=== PATIENT | female | born 1975 | race Caucasian/White ===

== ENCOUNTER 2016-11-01 01:08 | Observation (INO) ==
[2016-11-01 01:24] LABS: Basophils # 0.1 K/mcL (0.0-0.2); Basophils % 0.4 %; Eosinophils # 0.2 K/mcL (0.0-0.6); Hematocrit 49.3 % (35.3-44.9); Hemoglobin 16.4 g/dL (11.5-15.4); Immature Granulocytes % 0.7 % (0-4); Lymphocytes # 3.7 K/mcL (0.6-4.6); Lymphocytes % 21.3 %; Mean Corpuscular HGB Conc 33.3 g/dL (31.6-35.5); Mean Corpuscular Hemoglobin 28.9 pg (28.0-33.3); Mean Corpuscular Volume 86.8 fL (83.0-100.0); Mean Platelet Volume 9.7 fL (9.4-12.4); Monocytes # 1.4 K/mcL (0.0-1.3); Platelet Count 209 K/mcL (140-400); Red Blood Count 5.68 M/mcL (3.82-4.97); Red Cell Distribution Width 13.2 % (11.5-14.5); Segmented Neutrophils % 68.6 %
[2016-11-01 01:29] LABS: Prothrombin Time 10.9 Seconds (9.4-12.1)
[2016-11-01] MEDS: 0.9 % Sodium Chloride 1,000 ML IVC SCH ×4 (01:30→22:17)
--- NOTE | 2016-11-01 01:30 | Emergency Department Note ---
Disposition Clinical Impression: TIA (transient ischemic attack) Qualifiers: Transient cerebral ischemia type: unspecified Qualified Code(s): G45.9 - Transient cerebral ischemic attack, unspecified Disposition: Admitted As Inpatient Condition: Good Neuro HPI - General Chief Complaint: ED Neuro Symptoms/Deficit Stated Complaint: stroke alert Time Seen by Provider: 11/01/16 01:16 Source: patient Mode of arrival: EMS Limitations: no limitations Nursing Notes Reviewed: Yes Vital Signs Reviewed: Yes - History of Present Illness HPI Narrative: 41-year-old female history of thrombocytopenia who presents to the ER due to right-sided paresthesias. Patient states that she got home from work around 10: 30. She reports as she was going to sleep she started feeling chest pain, then a headache, then right sided paresthesias. EMS was called by her family at home. She believes this was around midnight. She denies a prior history of CVA. She reports pain in the right side of her neck as well as her right shoulder. She reports weakness in her right upper extremity secondary to this. She also has pain of her right lower extremity and pain with motion. She states that her right upper extremity felt numb but that it is improving and she is now able to feel her hand. She reports a prior history of headaches. Cranial nerves are intact on exam. No dysarthria or slurred speech. Negative Spurling test. She does have pain with palpation along her right neck and shoulder. Stroke alert was not called as the patient's symptoms do not seem to correlate with an acute cerebral infarction. She is having pain that is limiting her range of motion of the right upper and lower extremities. Her symptoms are also improving and she is able to feel her hand now at the time of arrival. Given her sudden onset of symptomatology as well as her prior history of thrombocytopenia we will pursue arterial studies for evaluation for potential dissection. Onset of Symptoms Date: 11/01/16 Onset of Symptoms Time: 00:00 Symptom Onset Unknown: No Timing confirmed by: family member Location: right arm, right leg History of same: No Severity: moderate Quality: numbness Symptoms Improving: Yes Improves with: time Context: sudden onset On Anticoagulants: No Associated symptoms: Reports: chest pain, headaches, nausea/vomiting. Denies: fever/chills, shortness of breath Treatments Prior to Arrival: none - Related Data Home Medications: Home Medications Medication Instructions Recorded Confirmed Omeprazole [PriLOSEC] 20 mg PO DAILY PRN 11/01/16 11/01/16 Allergies/Adverse Reactions: Allergies Allergy/AdvReac Type Severity Reaction Status Date / Time naproxen [From Naprosyn] AdvReac Difficulty Verified 05/10/16 20:07 Breathing All systems ED: reviewed and negative except as stated. Constitutional: Denies: fever Cardiovascular: Reports: chest pain Respiratory: Denies: dyspnea Gastrointestinal: Reports: nausea. Denies: abdominal pain, vomiting, diarrhea Neurological: Reports: headache, weakness, paresthesias Past Medical History - Past Medical History Attestation: Yes The following information was validated with the patient. Source: patient Medical history: Reports: non-contributory, asthma, other (Thrombocytopenia) Surgical history: Reports: non-contributory - Social History Smoking Status: Never smoker Smokeless Tobacco Status: No Alcohol use: Reports: none Drug use: Reports: none Physical Exam - General Limitations: no limitations General appearance: alert, in no apparent distress - Head Head exam: atraumatic, normocephalic, normal inspection - Eye Eye exam: Present: normal appearance, PERRL, EOMI - ENT ENT exam: normal exam - Neck Neck exam: Present: normal inspection, full ROM, tenderness (Patient has tenderness to palpation along the right paraspinal muscles.) - Chest Chest inspection: Present: normal inspection, symmetric chest wall rise - Respiratory Respiratory exam: Present: normal lung sounds bilaterally - Cardiovascular Cardiovascular exam: Present: regular rate, normal rhythm, normal heart sounds - Abdominal Exam Abdominal exam: Present: soft, Non-Tender. Absent: tenderness, distention, rigidity - Extremities Exam Extremities exam: Present: normal inspection - Expanded Upper Extremity Exam Shoulder exam: Present: normal inspection, full ROM, tenderness (Patient has tenderness to palpation to her right shoulder.) Arm exam: Present: normal inspection, full ROM, other (Patient reports paresthesias to the right upper extremity.) Elbow exam: Present: normal inspection, full ROM Forearm/Wrist exam: Present: normal inspection, full ROM Hand exam: Present: normal inspection, full ROM Vascular exam: Normal: capillary refill, radial pulse - Expanded Lower Extremity Exam Hip/Pelvis exam: Present: normal inspection, full ROM Upper leg exam: Present: normal inspection, full ROM, other (Patient reports paresthesias to the right lower extremity of the proximal thigh.) Knee exam: Present: normal inspection, full ROM Lower leg exam: Present: normal inspection, full ROM Ankle exam: Present: normal inspection, full ROM Foot/toe exam: Present: normal inspection, full ROM Neurovascular/Tendon exam: Absent: motor deficit - Neurological Exam Neurological exam: Present: alert, oriented X3, CN II-XII intact - Expanded Neurological Exam Patient oriented to: Present: person, place, time Speech: Present: fluid speech Cranial nerves: EOM function (II, III, IV, ): Normal, facial sensation (V): Normal, spinal accessory function (XI): Normal, tongue deviation (XII): Normal Motor strength - LUE: 5/5 Motor strength - RUE: 5/5 (Reports weakness of her right upper extremities secondary to pain from her neck.) Motor strength - LLE: 5/5 Motor strength - RLE: 5/5 (Reports pain with movement of her right lower extremity.) Sensory exam upper extremity: light touch: Abnormal Right (Right arm) Sensory exam lower extremity: light touch: Abnormal Right (Right thigh) Coma Scale Eye Opening: Spontaneous Coma Scale Motor Response: Obeys Commands Coma Scale Verbal Response: Oriented Coma Scale Total: 15 - Psychiatric Psychiatric exam: Present: normal affect, normal mood - Skin Skin exam: Present: warm, dry, intact, normal color Course Course Narrative: Patient seen and examined the time of arrival. She has subjective weakness of her right upper and lower extremity that she reports is secondary to pain. She had chest pain that then provoked headache and then right-sided paresthesias. Her pain does not correlate with an acute cerebral event. We are concerned for potential dissection given her history of a questionable bleeding disorder and sudden onset right sided paresthesias. We will pursue a CT angiogram of her head, neck, chest, abdomen and pelvis. EKG, chest x-ray and labs including troponin ordered. - Reevaluation(s) Reevaluation #1: Discussed results of imaging and lab work with the patient. Her symptoms have improved since arrival. She is in agreement with staying in the hospital. Vital Signs Temperature 98.3 F 11/01/16 01:09 Pulse Rate 94 11/01/16 01:09 Respiratory Rate 20 11/01/16 01:09 Blood Pressure 140/89 11/01/16 01:09 O2 Sat by Pulse Oximetry 97 11/01/16 01:09 Temperature 98.6 F 11/02/16 11:32 Pulse Rate 68 11/02/16 11:32 Respiratory Rate 16 11/02/16 11:32 Blood Pressure 125/79 11/02/16 11:32 O2 Sat by Pulse Oximetry 97 11/02/16 11:32 Oxygen Delivery Oxygen Delivery Room Air Neuro Symptoms/Deficit - MDM Narrative Medical decision making narrative: 41-year-old female presents to the ER due to right sided weakness. Onset around midnight. Patient had pain associated with her symptoms which is unclear in origin. Symptoms improved during ED stay. There was concern for dissection giving her acute right-sided paresthesias. Dissection studies are negative. NIH's 1. Patient admitted to the hospitalist service for TIA workup. - Lab Data Lab results reviewed: Yes I reviewed the patient's lab results. Result diagrams: 11/02/16 04:40 11/01/16 01:11 Lab Results 11/01/16 11/01/16 11/01/16 Range/Units 01:11 01:11 01:11 WBC 17.5 H (4.3-11.1) K/mcL RBC 5.68 H (3.82-4.97) M/mcL Hgb 16.4 H (11.5-15.4) g/dL Hct 49.3 H (35.3-44.9) % MCV 86.8 (83.0-100.0) fL MCH 28.9 (28.0-33.3) pg MCHC 33.3 (31.6-35.5) g/dL RDW 13.2 (11.5-14.5) % Plt Count 209 (140-400) K/mcL MPV 9.7 (9.4-12.4) fL Immature Gran % 0.7 (0-4) % Seg Neutrophils % 68.6 % Lymphocytes % 21.3 % Monocytes % 8.0 % Eosinophils % 1.0 % Basophils % 0.4 % Neutrophils # 12.0 H (1.6-8.9) K/mcL Lymphocytes # 3.7 (0.6-4.6) K/mcL Monocytes # 1.4 H (0.0-1.3) K/mcL Eosinophils # 0.2 (0.0-0.6) K/mcL Basophils # 0.1 (0.0-0.2) K/mcL PT 10.9 (9.4-12.1) Seconds INR 1.0 APTT 30.1 (26.0-36.0) Seconds Sodium 138 (136-145) mEq/L Potassium 4.1 (3.5-4.5) mEq/L Chloride 106 (98-109) mEq/L Carbon Dioxide 22 (19-29) mEq/L BUN 16 (7-20) mg/dL Creatinine 0.76 (0.57-1.11) mg/dL Est GFR ( Amer) > 60 (> 60) Est GFR (Non-Af Amer) > 60 (> 60) BUN/Creatinine Ratio 21 (6-26) Glucose 119 H (70-99) mg/dL POC Glucose (58-89) Calculated Osmolality 288 (280-300) Calcium 9.1 (8.6-10.8) mg/dL Troponin I (0-0.03) ng/mL Urine Color (Yellow) Urine Clarity (Clear) Urine pH (5.0-8.0) pH Units Ur Specific Roff (1.010-1.025) Urine Protein (Neg-Trace) mg/dL Urine Glucose (UA) (Normal) mg/dL Urine Ketones (Negative) mg/dL Urine Blood (Negative) Urine Nitrite (Negative) Urine Bilirubin (Negative) Urine Urobilinogen (Normal) mg/dL Ur Leukocyte Esterase (Negative) Ur Culture Indicated? (NO) Urine Test (Negative) 11/01/16 11/01/16 11/01/16 Range/Units 01:11 01:12 04:05 WBC (4.3-11.1) K/mcL RBC (3.82-4.97) M/mcL Hgb (11.5-15.4) g/dL Hct (35.3-44.9) % MCV (83.0-100.0) fL MCH (28.0-33.3) pg MCHC (31.6-35.5) g/dL RDW (11.5-14.5) % Plt Count (140-400) K/mcL MPV (9.4-12.4) fL Immature Gran % (0-4) % Seg Neutrophils % % Lymphocytes % % Monocytes % % Eosinophils % % Basophils % % Neutrophils # (1.6-8.9) K/mcL Lymphocytes # (0.6-4.6) K/mcL Monocytes # (0.0-1.3) K/mcL Eosinophils # (0.0-0.6) K/mcL Basophils # (0.0-0.2) K/mcL PT (9.4-12.1) Seconds INR APTT (26.0-36.0) Seconds Sodium (136-145) mEq/L Potassium (3.5-4.5) mEq/L Chloride (98-109) mEq/L Carbon Dioxide (19-29) mEq/L BUN (7-20) mg/dL Creatinine (0.57-1.11) mg/dL Est GFR ( Amer) (> 60) Est GFR (Non-Af Amer) (> 60) BUN/Creatinine Ratio (6-26) Glucose (70-99) mg/dL POC Glucose 110 H (58-89) Calculated Osmolality (280-300) Calcium (8.6-10.8) mg/dL Troponin I 0.00 (0-0.03) ng/mL Urine Color Yellow (Yellow) Urine Clarity Clear (Clear) Urine pH 6.0 (5.0-8.0) pH Units Ur Specific Roff 1.030 H (1.010-1.025) Urine Protein Negative (Neg-Trace) mg/dL Urine Glucose (UA) Normal (Normal) mg/dL Urine Ketones Negative (Negative) mg/dL Urine Blood Negative (Negative) Urine Nitrite Negative (Negative) Urine Bilirubin Negative (Negative) Urine Urobilinogen Normal (Normal) mg/dL Ur Leukocyte Esterase Negative (Negative) Ur Culture Indicated? NO (NO) Urine Test (Negative) 11/01/16 Range/Units 04:05 WBC (4.3-11.1) K/mcL RBC (3.82-4.97) M/mcL Hgb (11.5-15.4) g/dL Hct (35.3-44.9) % MCV (83.0-100.0) fL MCH (28.0-33.3) pg MCHC (31.6-35.5) g/dL RDW (11.5-14.5) % Plt Count (140-400) K/mcL MPV (9.4-12.4) fL Immature Gran % (0-4) % Seg Neutrophils % % Lymphocytes % % Monocytes % % Eosinophils % % Basophils % % Neutrophils # (1.6-8.9) K/mcL Lymphocytes # (0.6-4.6) K/mcL Monocytes # (0.0-1.3) K/mcL Eosinophils # (0.0-0.6) K/mcL Basophils # (0.0-0.2) K/mcL PT (9.4-12.1) Seconds INR APTT (26.0-36.0) Seconds Sodium (136-145) mEq/L Potassium (3.5-4.5) mEq/L Chloride (98-109) mEq/L Carbon Dioxide (19-29) mEq/L BUN (7-20) mg/dL Creatinine (0.57-1.11) mg/dL Est GFR ( Amer) (> 60) Est GFR (Non-Af Amer) (> 60) BUN/Creatinine Ratio (6-26) Glucose (70-99) mg/dL POC Glucose (58-89) Calculated Osmolality (280-300) Calcium (8.6-10.8) mg/dL Troponin I (0-0.03) ng/mL Urine Color (Yellow) Urine Clarity (Clear) Urine pH (5.0-8.0) pH Units Ur Specific Roff (1.010-1.025) Urine Protein (Neg-Trace) mg/dL Urine Glucose (UA) (Normal) mg/dL Urine Ketones (Negative) mg/dL Urine Blood (Negative) Urine Nitrite (Negative) Urine Bilirubin (Negative) Urine Urobilinogen (Normal) mg/dL Ur Leukocyte Esterase (Negative) Ur Culture Indicated? (NO) Urine Test Negative (Negative) - Radiology Data Radiology results reviewed: Yes I reviewed the patient's radiology results. Angiography CT 11/01/16 01:20 IMPRESSION: Unremarkable CTA of the head and neck. D/ / Tej Amador / Tej Amador Interpreting Provider: Tej Amador Chest CTA 11/01/16 01:20 IMPRESSION: There is no evidence of aortic dissection or aneurysm. Diffuse fatty infiltration of the liver. 2.0 cm complex lesion is seen within the left ovary. This is indeterminate. Further evaluation with ultrasound is recommended. D/ / Bernie Alcaraz MD / Bernie Alcaraz MD Interpreting Provider: Bernie Alcaraz MD Neck CTA 11/01/16 01:20 IMPRESSION: Unremarkable CTA of the head and neck. D/ / Tej Amador / Tej Amador Interpreting Provider: Tej Amador - EKG Data EKG attestation: Yes I reviewed and interpreted this EKG. EKG results narrative: EKG demonstrates sinus rhythm with a rate of 78 bpm. Normal axis. Normal intervals. T-wave flattening in lead 3. No ST elevations or depressions. No acute ischemic findings. NIH Stroke Scale - Level of Consciousness LOC: Alert - LOC Questions LOC Questions: Answers both correctly - LOC Commands LOC Commands: Performs both correctly - Best Gaze Best Gaze: Normal - Visual Visual: No visual loss - Facial Palsy Facial Palsy: Normal - Motor Arms Motor Arm-Left: No drift for 10 seconds Motor Arm-Right: No drift for 10 seconds - Motor Legs Motor Leg-Left: No drift for 5 seconds Motor Leg-Right: No drift for 5 seconds - Limb Ataxia Limb Ataxia: Absent of affected limb too weak to perform exam - Sensory Sensory: Mild to moderate loss, "not as sharp" - Best Language Best Language: No aphasia - Dysarthria Dysarthria: Normal - Extinction and Inattention Extinction and Inattention: Normal - NIHSS Total Score NIHSS Total Score: 1 S.B.A.R. - S.B.A.R. Situation: Demographics, MOA Background: Presenting Complaint, Relevant PMH, Meds, & Allergies Assessment: Vital Signs, Course and respsone to treatment, Exam Concerns, Patient/Family Expectation, Pertinant Lab Results, Outstanding Labs Recommendation: Barrier(s) to disposition, Recommendation based on pending studies, treatments, or consults S.B.A.R. Report Given to: Dr. Raghavendra BourgeoisADavid Repor Time: 05:55 Attestation Statement - Attestation Attestation: I examined this patient and my medical decision-making was reviewed with the Resident Physician, Dr. Candelaria. I agree with the documented findings, disposition and treatment plan as described except to the extent set forth below. Pt is a 41 yo wf who presents by EMS for c/o R sided weakness/numbness which began at [place]. Pt arrived with c/o acute severe pain to R side of neck and shoulder, limiting her ROM in RUE and pain throughout R groin and RLE. Pt c/o numbness to RUE/RLE. Pt's speech clear, and no other focal deficits appreciated. Pt states sxs began with diffuse CP, then R neck pain with RUE/RLE weakness/numbness. Pt reports on arrival that "I can feel my R arm and hand now ", with sxs improving on arrival. Pt with hx thrombocytopenia. We did not call a stroke alert, secondary to pt's sxs and more concerned on arrival for possible dissection. Pt hemodynamically stable on arrival. Pt EKG with no ischemic changes. Pt had labs, and CTA head/neck/chest/a&P. Pt with unremarkable imaging. No CVA/bleed/dissection. Will admit for further eval/mgmt for possible tIA. On re-evaluation upon return from CT, pt asymptomatic, with exception of mild RUIZ. Full ROM to RUE/RLE and resolution of numbness.
[2016-11-01 01:31] LABS: Activated Partial Thrombo Time 30.1 Seconds (26.0-36.0)
[2016-11-01 01:37] LABS: BUN/Creatinine Ratio 21 (6-26); Blood Urea Nitrogen 16 mg/dL (7-20); Calcium 9.1 mg/dL (8.6-10.8); Carbon Dioxide 22 mEq/L (19-29); Chloride 106 mEq/L (98-109); Glucose 119 mg/dL (70-99); Osmolality,Calculated 288 (280-300); Potassium 4.1 mEq/L (3.5-4.5); Sodium 138 mEq/L (136-145); eGFR For African Americans > 60 (> 60); eGFR For Non-African Americans > 60 (> 60)
[2016-11-01] MEDS ORDERED: Aspirin 81 MG TAB.CHEW PO ONE (03:20)
[2016-11-01 04:13] LABS: Bilirubin,Urine Negative (Negative); Blood,Urine Negative (Negative); Clarity,Urine Clear (Clear); Color,Urine Yellow (Yellow); Glucose,Urine (UA) Normal (Normal); Ketones,Urine Negative (Negative); Leukocyte Esterase,Urine Negative (Negative); Nitrite,Urine Negative (Negative); Protein,Urine Negative (Neg-Trace); Urobilinogen,Urine Normal (Normal)
[2016-11-01] MEDS ORDERED: Ondansetron 4 MG/2 ML VIAL IVP PRN (09:22)
[2016-11-01] MEDS ORDERED: *HR* HYDROcodone/Acet 5/325 mg TABLET PO PRN (09:22)
[2016-11-01] MEDS ORDERED: Naloxone 0.4 MG/ML INJ IVP PRN (09:22)
[2016-11-01] MEDS ORDERED: Acetaminophen 325 MG TABLET PO PRN (09:22)
--- NOTE | 2016-11-01 10:41 | Internal Med History&Physical ---
Date of Encounter: 11/01/16 Time of Encounter: 10:41 Internal Medicine - H&P: HPI History of present illness: Ms. Root is a 41 year old female Past Med Surg Social Fam HX - Past Medical History Medical history: asthma - Past Surgical History Surgical History: non-contributory - Social History Smoking Status: Current some day smoker Smokeless Tobacco Status: No Alcohol use: none Drug use: none Internal Medicine - H&P: Meds Omeprazole [PriLOSEC] 20 mg PO DAILY PRN 11/01/16 [History] 3 Allergy/AdvReac Type Severity Reaction Status Date / Time naproxen [From Naprosyn] AdvReac Difficulty Verified 05/10/16 20:07 Breathing All Systems PM: A 10-system review of systems was performed and is negative for pertinent findings except as documented above in the HPI. - Constitutional Vitals: Temp Pulse Resp BP Pulse Ox 98.3 F 68 18 109/65 95 11/01/16 06:31 11/01/16 10:00 11/01/16 10:00 11/01/16 10:00 11/01/16 06:31 Internal Med - H&P Results - Labs CBC & Chem 7: 11/01/16 01:11 11/01/16 01:11
--- NOTE | 2016-11-01 14:27 | Internal Med History&Physical ---
Date of Encounter: 11/01/16 Time of Encounter: 14:27 Assessment and Plan (1) Syncope Current visit: Yes Status: Acute Order cardiac enzymes check echocardiogram. Her CTA of head and neck and chest were quite unremarkable. Neurology to see the patient. Qualifiers: Syncope type: unspecified Qualified Code(s): R55 - Syncope and collapse (2) Chest pain Current visit: Yes Status: Acute Atypical chest pain. Aspirin is started. Echo pending. Serial cardiac enzymes recycled. Qualifiers: Chest pain type: unspecified Qualified Code(s): R07.9 - Chest pain, unspecified (3) Right arm weakness Current visit: Yes Status: Acute Patient developed an episode in which she had headache neck pain and right upper and lower extremity weakness with paresthesia but it seems like the symptoms have already resolved now as well as her headache. Differential diagnoses include complicated migraine versus CVA versus cervical spondylosis. As she already had detailed CT angiogram of the head and neck I will add MRI of the cervical spine to rule out any radiculopathy versus a spondylosis as well as an echocardiogram. Discussed with neurology who will see the patient. (4) Asthma Current visit: Yes Status: Acute Inhalers when necessary Qualifiers: Asthma severity: mild intermittent Asthma complication type: uncomplicated Qualified Code(s): J45.20 - Mild intermittent asthma, uncomplicated (5) Idiopathic thrombocytopenia Current visit: Yes Status: Acute Patient has seen hematology as an outpatient and had a biopsy earlier she is following with them (6) Hypertension Current visit: Yes Status: Acute Resume home medication and daily monitoring Qualifiers: Hypertension type: essential hypertension Qualified Code(s): I10 - Essential (primary) hypertension (7) DVT prophylaxis Current visit: Yes Status: Acute [facility] Internal Medicine - H&P: HPI Chief complaint: Headache neck pain and right-sided weakness and paresthesias, chest pain Admitted From: Home Plans for Post Hospital Care: Home History of present illness: Ms. Root is a 41 year old female who has past medical history significant for hypertension and asthma. Yesterday as she returned from her work she developed headache neck pain and later right upper and lower extremity weakness and numbness. Interestingly all the symptoms by this time has resolved. She had terrible right-sided chest pain more in the upper chest area which was not pleuritic in nature. She does not have any history of CVA or [place]. According to boyfriend while she was at suffering through the symptoms for couple of minutes she become unresponsive. Does not remember much. She was not noted to have lost control of bowel or bladder or bit her tongue either. No prior history of seizure. No other complaints. Past Med Surg Social Fam HX - Past Medical History Medical history: asthma - Past Surgical History Surgical History: non-contributory - Social History Smoking Status: Current some day smoker Smokeless Tobacco Status: No Alcohol use: none Drug use: none Internal Medicine - H&P: Meds Omeprazole [PriLOSEC] 20 mg PO DAILY PRN 11/01/16 [History] 3 Allergy/AdvReac Type Severity Reaction Status Date / Time naproxen [From Naprosyn] AdvReac Difficulty Verified 05/10/16 20:07 Breathing All Systems PM: A 10-system review of systems was performed and is negative for pertinent findings except as documented above in the HPI. - Constitutional Constitutional: no chills, no fever(s), no night sweats - EENT Eyes: no change in vision, no discharge, no pain, no photophobia Ears: no ear discharge, no ear pain, no tinnitus Nose, mouth and throat: no dysphagia, no nasal discharge, no neck pain, no sore throat - Cardiovascular Cardiovascular ROS IM: no chest pain, no diaphoresis, no dyspnea, no lightheadedness, no palpitations, no syncope - Respiratory Respiratory: no cough, no dyspnea, no wheezing, no excessive phlegm production - Gastrointestinal Gastrointestinal: no abdominal pain, no diarrhea, no hematemesis, no hematochezia, no melena, no nausea, no vomiting - Genitourinary Genitourinary: no change in urinary stream, no dysuria, no flank pain, no hematuria - Musculoskeletal Musculoskeletal ROS IM: no numbness, no tingling - Integumentary Integumentary IM: no rash, no unusual bruising - Neurological Neurological ROS: no confusion, no convulsions, no focal weakness, no numbness, no tingling, no tremor(s) - Hematologic/Lymphatic Hematologic/Lymphatic: no easy bruising - Constitutional Vitals: Temp Pulse Resp BP Pulse Ox 98.3 F 68 18 109/65 97 11/01/16 09:22 11/01/16 10:00 11/01/16 10:00 11/01/16 10:00 11/01/16 11:05 General appearance: Present: A&O X 3, pleasant, no acute distress, obese - Head Head exam: Present: atraumatic, normocephalic - Eye Eye exam: Present: PERRL, conjuntiva pink, sclera anicteric Pupils: Present: PERRL - Neck Neck exam general surgery: Present: supple, trachea midline. Absent: lymphadenopathy - Respiratory Respiratory exam: Present: CTAB. Absent: accessory muscle use, rales, rhonchi, wheezes - Cardiovascular Cardiovascular exam: Present: RRR, +S1, +S2. Absent: diastolic murmur, gallop, rubs, systolic murmur - GI/Abdominal GI/Abdominal exam: Present: normal bowel sounds, soft, no peritoneal signs. Absent: distended, tenderness - Extremities Exam Extremities exam: Present: warm, radial pulses palpable and symmetrical. Absent : calf tenderness, cyanotic, pedal edema - Neurological Exam Neurological exam: Present: CN II-XII intact, oriented X3, no focal deficits. Absent: pronater drift, facial droop, speech deficit - Skin Skin exam: Present: dry, intact Internal Med - H&P Results - Labs CBC & Chem 7: 11/01/16 01:11 11/01/16 01:11 Labs: Cardiac Enzymes 11/01/16 Range/Units 09:49 Troponin I 0.01 (0-0.03) ng/mL
[2016-11-01] MEDS: Aspirin 325 MG TABLET PO SCH (14:39)
--- NOTE | 2016-11-01 15:15 | Neurology - Consult Note ---
Date of Encounter: 11/01/16 Time of Encounter: 15:11 Assessment and Plan (1) Intractable complicated migraine Current Visit: Yes Status: Acute The patient's symptoms were likely related to a complicated migraine attack with stroke like symptoms. At the moment SYMPTOMS ARE RESOLVED NOW SHE DID NOT HAVE ANY FOCAL NEUROLOGICAL DEFICIT ANGIOGRAM OF THE HEAD AND NECK IS BEEN REPORTED NEGATIVE SHE IS SCHEDULED FOR AN MRI OF THE BRAIN she has been getting some frequent headaches she may benefit from preventative therapy but she did not like to take any medication on a regular basis perhaps we can start her on low-dose of muscle relaxant like tizanidine to take it at bedtime at the same time she may take some NSAID on as-needed basis No PICA is also in the differential but The moment the description sounds more of complicated migraine than the 3 times a day especially given the significant headaches associated with the symptoms MRI of the brain is negative he could be discharged to home follow-up with neurology History of Present Illness HPI: Ms. Root is a 41 year old female with hypertension and asthma. admited with right arm weakness and chest pain along with severe headache according to patient she returned from her work developed headache neck pain and later right upper and lower extremity weakness and numbness. She had terrible right-sided chest pain more in the upper chest area along with sever headache mostly on right side of her head, throbbing in nature she vomite According to boyfriend she has some disorientation as well, Does not remember much. She was not noted to have lost control of bowel or bladder or bit her tongue either. No prior history of seizure. No other complaints.byt he time she came to er all symptoms are resolved CTA of neck head and Chest all negative Past Med Surg Social Fam HX - Past Medical History Medical history: asthma - Past Surgical History Surgical History: non-contributory - Social History Smoking Status: Current some day smoker Smokeless Tobacco Status: No Alcohol use: none Drug use: none Medications and Allergies Omeprazole [PriLOSEC] 20 mg PO DAILY PRN 11/01/16 [History] 3 Allergy/AdvReac Type Severity Reaction Status Date / Time naproxen [From Naprosyn] AdvReac Difficulty Verified 05/10/16 20:07 Breathing All Systems: A 10-system review of systems was performed and is negative for pertinent findings except as documented above in the HPI. getting frequent headaches on daily basis Physical Examination - Vital Signs Vital Signs: Initial Vital Signs Temp Pulse Resp BP Pulse Ox 98.3 F 94 20 140/89 97 11/01/16 01:09 11/01/16 01:09 11/01/16 01:09 11/01/16 01:09 11/01/16 01:09 - Constitutional General appearance: comfortable - Neurologic Detailed motor examination: full strength in all major muscle groups Motor examination - right side: 07/08: deltoids, biceps, triceps, wrist flexion, wrist extension, cyber engineer, hip flexors, tibialis Anterior, quadriceps, toe extension (EHL), plantarflexion Motor examination - left side: 07/08: deltoids, biceps, triceps, wrist flexion, wrist extension, hip flexors, cyber engineer, quadriceps, tibialis Anterior, toe extension (EHL), plantarflexion Mental Status Examination: awake, alert, oriented to person, oriented to place, oriented to time, follows commands appropriately, answers questions appropriately, no agnosia, no aphasia, no aproxia Cranial nerve examination: PERRL, EOMI, visual hammond intact, corneal reflexes brisk symmetrically, sensory to face intact, mastication intact, no facial asymmetry is present, no dysarthria, hearing is intact symmetrically, soft palate elevates bilaterally upon phonation, gag reflex intact, flexes SCM and trapezius muscles symmetrically with full power, tongue protrudes midline, no atrophy or facial fasiculations present Cerebellar examination: no dysmetria, performs finger to nose and heel to mcgee symmetrically without ataxia, no gait ataxia, no truncal ataxia, no difficulty with rapid alternating movements Results - Laboratory Findings CBC and BMP: 11/01/16 01:11 11/01/16 01:11 Abnormal lab findings: Abnormal lab results WBC 17.5 K/mcL (4.3-11.1) H 11/01/16 01:11 RBC 5.68 M/mcL (3.82-4.97) H 11/01/16 01:11 Hgb 16.4 g/dL (11.5-15.4) H 11/01/16 01:11 Hct 49.3 % (35.3-44.9) H 11/01/16 01:11 Neutrophils # 12.0 K/mcL (1.6-8.9) H 11/01/16 01:11 Monocytes # 1.4 K/mcL (0.0-1.3) H 11/01/16 01:11 Glucose 119 mg/dL (70-99) H 11/01/16 01:11 Ur Specific [place] 1.030 (1.010-1.025) H 11/01/16 04:05 Consult Discharge Plan - Plan Referrals: Eddie Belle MD [Primary Care Provider] -
[2016-11-01] MEDS: Ipratropium/Albuterol Neb 3 ML IH SCH ×2 (16:31→23:08)
--- NOTE | 2016-11-01 17:08 | Electrocardiograph Report ---
[address] [address] Test Date: 2016-11-01 Pat Name: Yolanda Root Department: 104 Room: [facility] Gender: F Natural Resource Specialist: : [id number] Requested By: Reji Candelaria Order Number: [id number] Reading MD: Kimberley Jeffrey Measurements Intervals [place] Rate: 78 P: 58 OK: 155 QRS: 74 QRSD: 97 T: 30 QT: 298 QTc: 331 Interpretive Statements SINUS RHYTHM NONSPECIFIC T-WAVE ABNORMALITY Electronically Signed On 11-01-2016 17:07:04 EDT by Kimberley Jeffrey
[2016-11-02] MEDS: Ipratropium/Albuterol Neb 3 ML IH SCH ×2 (04:15→11:08)
[2016-11-02 05:00] LABS: Basophils # 0.1 K/mcL (0.0-0.2); Basophils % 0.5 %; Eosinophils # 0.2 K/mcL (0.0-0.6); Eosinophils % 1.3 %; Hematocrit 43.8 % (35.3-44.9); Hemoglobin 14.4 g/dL (11.5-15.4); Immature Granulocytes % 0.6 % (0-4); Lymphocytes # 2.7 K/mcL (0.6-4.6); Lymphocytes % 21.3 %; Mean Corpuscular HGB Conc 32.9 g/dL (31.6-35.5); Mean Corpuscular Volume 88.3 fL (83.0-100.0); Mean Platelet Volume 9.6 fL (9.4-12.4); Monocytes # 0.8 K/mcL (0.0-1.3); Monocytes % 6.7 %; Neutrophils # 8.7 K/mcL (1.6-8.9); Platelet Count 167 K/mcL (140-400); Red Blood Count 4.96 M/mcL (3.82-4.97); Red Cell Distribution Width 13.2 % (11.5-14.5); Segmented Neutrophils % 69.6 %
[2016-11-02 05:13] LABS: Chol/HDL Ratio 9.8 (0-4.9)
[2016-11-02] MEDS ORDERED: *HR* Enoxaparin 40 MG/0.4 ML SYRINGE SQ SCH (06:00)
[2016-11-02] MEDS: 0.9 % Sodium Chloride 1,000 ML IVC SCH (06:36)
--- NOTE | 2016-11-02 08:59 | Neurology Progress Note ---
Date of Encounter: 11/02/16 Time of Encounter: 08:15 Assessment and Plan (1) Intractable complicated migraine Current Visit: Yes Status: Acute The patient's symptoms were likely related to a complicated migraine attack with stroke like symptoms. At the moment SYMPTOMS ARE RESOLVED NOW SHE DID NOT HAVE ANY FOCAL NEUROLOGICAL DEFICIT ANGIOGRAM OF THE HEAD AND NECK IS BEEN REPORTED NEGATIVE SHE IS SCHEDULED FOR AN MRI OF THE BRAIN she has been getting some frequent headaches she may benefit from preventative therapy but she did not like to take any medication on a regular basis perhaps we can start her on low-dose of muscle relaxant like tizanidine to take it at bedtime at the same time she may take some NSAID on as-needed basis She is doing well she could be discharged home with follow-up with neurology on an as needed basis Subjective Interval history: Patient is doing well no headaches no other problems she is completely asymptomatic now MRI of the cervical spine did show some degenerative changes but no critical stenosis reported. CT angiogram of the neck head and chest were already negative Objective - Constitutional Vitals: Temp Pulse Resp BP Pulse Ox 98.4 F 63 16 107/78 97 11/02/16 07:31 11/02/16 07:31 11/02/16 07:31 11/02/16 07:31 11/02/16 07:31 - Neurological Exam Motor Examination: Present: full strength in all major muscle groups Motor examination - right side: 5/5: deltoids, biceps, triceps, wrist flexion, wrist extension, elevator conductor, hip flexors, tibialis Anterior, quadriceps, toe extension (EHL), plantarflexion Motor examination - left side: 5/5: deltoids, biceps, triceps, wrist flexion, wrist extension, hip flexors, elevator conductor, quadriceps, tibialis Anterior, toe extension (EHL), plantarflexion Mental Status Examination: Present: awake, alert, oriented to person, oriented to place, oriented to time, follows commands appropriately, answers questions appropriately, no agnosia, no aphasia, no aproxia Cranial nerve examination: Present: PERRL, EOMI, visual hammond intact, corneal reflexes brisk symmetrically, sensory to face intact, mastication intact, no facial asymmetry is present, no dysarthria, hearing is intact symmetrically, soft palate elevates bilaterally upon phonation, gag reflex intact, flexes SCM and trapezius muscles symmetrically with full power, tongue protrudes midline, no atrophy or facial fasiculations present Cerebellar examination: Present: no dysmetria, performs finger to nose and heel to mcgee symmetrically without ataxia, no gait ataxia, no truncal ataxia, no difficulty with rapid alternating movements Results - Laboratory Findings CBC and BMP: 11/02/16 04:40 11/01/16 01:11 Abnormal lab findings: Abnormal lab results WBC 12.5 K/mcL (4.3-11.1) H 11/02/16 04:40 Glucose 119 mg/dL (70-99) H 11/01/16 01:11 POC Glucose 110 (58-89) H 11/01/16 01:12 Cholesterol 216 mg/dL (< 200) H 11/02/16 04:40 LDL Cholesterol, Calc 168 mg/dL (0-99) H 11/02/16 04:40 HDL Cholesterol 22 mg/dL (40-59) L 11/02/16 04:40 Cholesterol/HDL Ratio 9.8 (0-4.9) H 11/02/16 04:40 Ur Specific [place] 1.030 (1.010-1.025) H 11/01/16 04:05 Consult Discharge Plan - Plan Referrals: Eddie Belle MD [Primary Care Provider] -
[2016-11-02] MEDS ORDERED: tiZANidine 4 MG TABLET PO SCH (09:00)
[2016-11-02 11:35] VITALS: BP 125/79
[2016-11-02] MEDS: Aspirin 325 MG TABLET PO SCH (11:40)
--- NOTE | 2016-11-02 13:04 | Discharge Summary ---
Date of Encounter: 11/02/16 Time of Encounter: 13:01 - Discharge Diagnosis (1) Intractable complicated migraine Priority: Primary Status: Resolved (2) Asthma Priority: Secondary Status: Chronic Qualifiers: Asthma severity: mild intermittent Asthma complication type: uncomplicated Qualified Code(s): J45.20 - Mild intermittent asthma, uncomplicated (3) Hypertension Priority: Secondary Status: Chronic Qualifiers: Hypertension type: essential hypertension Qualified Code(s): I10 - Essential (primary) hypertension - Discharge Medications Home Medications: Omeprazole [PriLOSEC] 20 mg PO DAILY PRN 11/01/16 [History] Allergies/Adverse Reactions: 3 Allergy/AdvReac Type Severity Reaction Status Date / Time naproxen [From Naprosyn] AdvReac Difficulty Verified 05/10/16 20:07 Breathing Procedures/tests Complete & Pending: Procedures Performed prior 72 hours Category Date Time Status MR cervical spine wo con [MR] Routine MRI 11/01/16 09:28 Completed MR head/brain wo con [MR] Routine MRI 11/02/16 07:53 Completed EV echocardiogram Routine Y 11/01/16 14:13 Completed Date of admission: 11/01/16 05:41 Primary care physician: Eddie Belle MD Consults: 11/01/16 14:09 Consult to Neurology [CONS] Routine Consulting Provider: [facility] Reason for Consult: Headache neck pain and right sided weakness and numbness Time Notified: 14:10 Call Completed: Yes Discharging clinician: Rubén Rutledge Anticipated date of discharge: 11/02/16 - Patient Status Disposition: Home, Self-Care Condition: Good Functional capacity at discharge: independent ambulation Overall status at discharge: patient is back to baseline - Discharge Instructions Follow Up With: Eddie Belle MD [Primary Care Provider] - - Diet and Activity Activity: increase activity as tolerated, resume usual activities as tolerated Diet: low fat, low cholesterol, low salt diet Hospital course: Ms. Root is a 41 year old female with a history of hypertension and asthma presented to the emergency department due to right arm weakness and chest pain along with headache. She was admitted with a diagnosis of possible TIA. The patient had CT angiogram of the head and neck which did not reveal any clots. The patient was admitted with a diagnosis of TIA versus completed migraine. Neurology was consulted. The patient underwent MRI of the brain and cervical spine which were negative for any acute abnormality is. Neurology felt that the patient had completed migraine. Her symptoms had completely resolved by the time she was in the emergency department. The patient has been deemed stable to be discharged home and has been cleared by neurology. Of note, the patient states that she sleeps only 5 hours every night. She has also been diagnosed with mild sleep apnea but is not on any treatment. Good sleep hygiene and the need for evaluation of her sleep was emphasized to the patient. - Time Spent with Patient Total time spent providing and/or coordinating discharge services: - Constitutional Vitals: Temp Pulse Resp BP Pulse Ox 98.6 F 68 16 125/79 97 11/02/16 11:32 11/02/16 11:32 11/02/16 11:32 11/02/16 11:32 11/02/16 11:32 General appearance: Present: A&O X 3, pleasant, no acute distress, obese Exam: Gen.: Lying in bed. No acute distress. Chest: Clear to auscultation bilaterally. No adventitious sounds present. CVS: First and second heart sounds present. No murmurs, rubs or gallops. Abdomen: Soft, nontender, obese. Bowel sounds present. No hepatosplenomegaly.
== END 2016-11-02 14:36 | disposition home or self-care (01) ==
LOC: EMEROO 01:08 → 2NENU 01:08
PROVIDERS: ADMIT Internal Medicine; ATTEND Internal Medicine Sleep Medicine

== ENCOUNTER 2021-01-04 19:57 | Observation (INO) ==
[2021-01-04] MEDS ORDERED: Isovue-370 500 ML BOTTLE IVP ONE (20:09)
[2021-01-04 20:32] LABS: Hematocrit 49.2 % (35.3-44.9); Hemoglobin 16.5 g/dL (11.5-15.4); Mean Corpuscular HGB Conc 33.5 g/dL (31.6-35.5); Mean Corpuscular Hemoglobin 29.5 pg (28.0-33.3); Mean Corpuscular Volume 87.9 fL (83.0-100.0); Mean Platelet Volume 9.8 fL (9.4-12.4); Platelet Count 182 K/mcL (140-400); White Blood Count 13.4 K/mcL (4.3-11.1)
[2021-01-04 20:38] LABS: INR 1.1; Prothrombin Time 12.5 Seconds (9.4-12.1)
[2021-01-04 21:31] LABS: BUN/Creatinine Ratio 19 (6-26); Blood Urea Nitrogen 14 mg/dL (6-20); Calcium 9.2 mg/dL (8.6-10.3); Carbon Dioxide 28 mEq/L (23-29); Chloride 100 mEq/L (98-107); Ethanol < 10 mg/dL (Less than 10); Glucose 145 mg/dL (70-105); Osmolality,Calculated 287 (280-300); Potassium 3.9 mEq/L (3.5-5.1); Sodium 137 mEq/L (136-145); Troponin I < 0.03 ng/mL (< 0.04); eGFR For African Americans > 60 (> 60); eGFR For Non-African Americans > 60 (> 60)
[2021-01-04 23:18] LABS: Bilirubin,Urine Negative (Negative); Blood,Urine Moderate (Negative); Clarity,Urine Clear (Clear); Color,Urine Light-Yellow (Yellow); Glucose,Urine (UA) Normal (Normal); Ketones,Urine Negative (Negative); Leukocyte Esterase,Urine Negative (Negative); Mucus,Urine Few per lpf (None-Few); Nitrite,Urine Negative (Negative); Protein,Urine Trace mg/dL (Neg-Trace); RBC,Urine 0-3 per hpf (0-3); Specific Gravity,Urine > 1.030 (1.010-1.025); Squamous Epithelial Cell,Urine Few per hpf (None-Few); Urobilinogen,Urine Normal (Normal); WBC,Urine 0-3 per hpf (0-3)
[2021-01-04 23:23] LABS: Amphetamine Screen,Urine Negative ng/mL (Cutoff=1000); Barbiturate Screen,Urine Negative ng/mL (Cutoff=200); Benzodiazepines Screen,Urine Negative ng/mL (Cutoff=200); Cannabinoid Screen,Urine Negative ng/mL (Cutoff = 50); Cocaine Screen,Urine Negative ng/mL (Cutoff= 300); Opiate Screen,Urine Negative ng/mL (Cutoff=300); Phencyclidine Screen,Urine Negative ng/mL (Cutoff=25)
[2021-01-04] MEDS ORDERED: Ondansetron 4 MG/2 ML VIAL IVP PRN (23:41)
[2021-01-04] MEDS ORDERED: Naloxone 0.4 MG/ML INJ IVP PRN (23:41)
[2021-01-04] MEDS ORDERED: Acetaminophen 325 MG TABLET PO PRN (23:41)
[2021-01-04] MEDS ORDERED: Perflutren Lipid Microsphere 1.3 ML in 0.9 % Sodium Chloride 8.7 ML IVP PRN (23:44)
[2021-01-05] MEDS ORDERED: D5% in Water 1,000 ML IVC PRN (00:22)
[2021-01-05] MEDS ORDERED: *HR* Dextrose 50 % in Water (Syg) 50 ML SYRINGE IVP PRN (00:22)
[2021-01-05] MEDS ORDERED: Dextrose Gel 15 GM/37.5 ML TUBE PO PRN ×2 (00:22)
[2021-01-05] MEDS ORDERED: Albuterol 2.5 MG/3 ML NEBULIZER IH PRN (00:39)
[2021-01-05] MEDS ORDERED: *HR* Heparin 5,000 UNIT/ML VIAL SQ SCH (06:00)
[2021-01-05] MEDS ORDERED: Insulin LISPRO 300 UNITS/3 ML VIAL SUBQ SCH ×2 (06:00→21:00)
[2021-01-05 07:23] LABS: INR 1.1; Prothrombin Time 12.5 Seconds (9.4-12.1)
[2021-01-05 07:51] LABS: Basophils # 0.1 K/mcL (0.0-0.2); Basophils % 0.5 %; Eosinophils # 0.2 K/mcL (0.0-0.6); Eosinophils % 1.5 %; Hematocrit 48.8 % (35.3-44.9); Immature Granulocytes % 0.8 % (0-4); Lymphocytes # 2.7 K/mcL (0.6-4.6); Lymphocytes % 24.8 %; Mean Corpuscular HGB Conc 32.8 g/dL (31.6-35.5); Mean Corpuscular Hemoglobin 29.1 pg (28.0-33.3); Mean Corpuscular Volume 88.9 fL (83.0-100.0); Mean Platelet Volume 9.8 fL (9.4-12.4); Monocytes # 0.8 K/mcL (0.0-1.3); Monocytes % 7.4 %; Neutrophils # 7.2 K/mcL (1.6-8.9); Platelet Count 169 K/mcL (140-400); Red Blood Count 5.49 M/mcL (3.82-4.97); Red Cell Distribution Width 13.1 % (11.5-14.5)
[2021-01-05 08:00] LABS: Alanine Aminotransferase 15 Units/L (7-52); Albumin 3.7 g/dL (3.5-5.7); Albumin/Globulin Ratio 1.3 (1.1-2.2); Alkaline Phosphatase 86 Units/L (34-104); Aspartate Amino Transferase 10 Units/L (13-39); BUN/Creatinine Ratio 20 (6-26); Bilirubin,Total 0.4 mg/dL (0.3-1.0); Blood Urea Nitrogen 13 mg/dL (6-20); Calcium 9.4 mg/dL (8.6-10.3); Carbon Dioxide 28 mEq/L (23-29); Chloride 104 mEq/L (98-107); Chol/HDL Ratio 9.6 (0-4.9); Cholesterol 239 mg/dL (< 200); Globulin 2.8 g/dL (2.4-3.5); Glucose 163 mg/dL (70-105); HDL Cholesterol 25 mg/dL (40-59); LDL Cholesterol,Calculated 183 mg/dL (< 100); Osmolality,Calculated 290 (280-300); Potassium 4.1 mEq/L (3.5-5.1); Sodium 138 mEq/L (136-145); Total Protein 6.5 g/dL (6.4-8.9); Triglycerides 156 mg/dL (< 150); eGFR For African Americans > 60 (> 60); eGFR For Non-African Americans > 60 (> 60)
[2021-01-05] MEDS: Insulin LISPRO 300 UNITS/3 ML VIAL SUBQ SCH ×2 (08:05→12:35)
[2021-01-05] MEDS ORDERED: Aspirin 81 MG TAB.CHEW PO SCH (09:00)
[2021-01-05 10:15] LABS: Estimated Average Glucose 163 mg/dl; Hemoglobin A1C 7.3 %
[2021-01-05 10:48] VITALS: BP 117/81; PULSE 65; TEMP 97.9
[2021-01-05 12:33] VITALS: O2SAT 95
== END 2021-01-05 13:36 | disposition home or self-care (01) ==
LOC: 3BNU 19:57 → EMEROOARM 19:57 → SUATTDRO 23:38 → 3BNU 01-05 00:33
PROVIDERS: ADMIT Internal Medicine; ATTEND Internal Medicine